=== PATIENT | female | born 1955 | race Caucasian/White ===

== ENCOUNTER 2025-04-25 06:53 | Day surgery (SDC) | payer MEDICARE, SELFPAY ==
[2025-04-21 09:22] VITALS: BMI 20.2
--- NOTE | 2025-04-23 09:32 | PTCARENOTE ---
Patients 04/21 PTT- 46.8= Abby @ office notified
--- NOTE | 2025-04-23 13:00 | PTCARENOTE ---
Patients 04/21 ECG abnormal- reviewed by Dr. Carrizales- no additional interventions required
[2025-04-25] VITALS (23 sets, daily range): BP systolic 102–158; BP diastolic 63–121; BMI 21.2
--- NOTE | 2025-04-25 08:45 | W.SUR.PREOP ---
Pre-Operative Surgical Note
-
I have examined this patient prior to the performance of the scheduled procedure.
The patient's condition is unchanged from the time of the current History and
Physical and the patient is able to undergo the scheduled procedure.
--- NOTE | 2025-04-25 09:34 | OR.RPT ---
Operative Report
Operative Report
Date of Operation: 04/25/2025
Pre Op Diagnosis:
1. Peripheral arterial occlusive disease
2. 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
3. Exertional right foot pain
Post Op Diagnosis:
1. Peripheral arterial occlusive disease
2. 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
3. Exertional right foot pain
Procedure:
1. Selective catheterization of third order lower extremity artery
2. Diagnostic aortobiiliac arteriogram
3. Diagnostic right lower extremity arteriogram
4. Ultrasound-guided percutaneous access to the left common femoral artery
Surgeon: Tanner Cisse III, MD
Toll Line Repairer: Chanelle Lee MD PGY2
Anesthesia: Sedation with local
Fluoroscopy:
5.5 min
18 mGy
6.93 gy.cm2
Complications: None
Estimated Blood Loss: Less than 10 cc
History and Indications for Procedure: 69-year-old female with symptomatic peripheral arterial occlusive disease and failed Marquez tibial bypass from an outside hospital. She was brought to the operating room today for diagnostic arteriogram of the
right lower extremity.
Procedure in Detail: Jayshree Rios was correctly identified and placed supine on the operating table. After adequate induction of anesthesia the bilateral groins were prepped and draped in the usual sterile fashion. A timeout was performed with
the nursing and anesthesia staff confirming the patient's identity as well as the nature and laterality of the procedure.
The left common femoral artery was identified under ultrasound guidance. The artery was patent. The superior and inferior aspects of the femoral head were identified with radiographic guidance and marked at the skin level. The proposed puncture site
was infiltrated with local anesthesia. Under ultrasound guidance we accessed the left common femoral artery with a micropuncture needle and upsized to a 5 Fr sheath over a [employer] wire. The wire and a [employer] hook flush catheter were advanced into
the distal abdominal aorta and a diagnostic aorto-biiliac arteriogram was performed:
AORTO-ILIAC ARTERIOGRAM:
Aorta: Patent with no stenosis identified
Right common iliac artery: Patent with no stenosis identified
Right external iliac artery: Patent with no stenosis identified
Left common iliac artery: Patent with no stenosis identified
Left external iliac artery: Patent with no stenosis identified
Under roadmap guidance using a Glidewire and the [employer] hook catheter we selected the right common iliac artery followed by the external iliac artery and then the common femoral artery. A catheter was tracked up and over the aortic bifurcation
and placed in the distal common femoral artery. A diagnostic right lower extremity arteriogram was then performed which demonstrated the following:
RIGHT LOWER EXTREMITY:
Common femoral artery: Patent with no stenosis identified
Profunda femoral artery: Patent with no stenosis identified
Superficial femoral artery: Patent with no significant stenosis identified. Mild luminal irregularity, perhaps mild stenosis at the previous site of the proximal anastomosis from the failed FEM tibial bypass.
Popliteal artery: Patent above the knee. Occluded behind the knee and below the knee. Obvious collaterals originating from the popliteal artery behind the knee that reconstitute the anterior tibial artery.
Anterior tibial artery: Reconstitutes at its origin. Patent to the ankle where it appears to occlude. Dorsalis pedis artery is occluded.
Tibioperoneal trunk: Occluded
Peroneal artery: Occluded proximal and mid segments. Appears to reconstitute distally at the ankle from distal anterior tibial artery branches. Posterior peroneal artery branch reconstitutes plantar branches in the foot.
Posterior tibial artery: Occluded. Faint reconstitution of a diminutive and heavily diseased posterior tibial artery in the calf. Surgical clips identified at the ankle consistent with prior bypass.
Satisfied with this diagnostic information we concluded the procedure. The catheter was pulled from the 5 Moldovan sheath. The 5 Moldovan sheath was secured in place with the plan to pull it in the recovery area.
The patient tolerated the procedure well and was taken to the recovery area in stable condition.
Attestation: I was present and responsible for the entire procedure.
Signed:
Tanner Cisse III, MD
Vascular Surgery
[facility]
== END 2025-04-25 14:30 | disposition home or self-care (01) ==
LOC: CATH 06:53
PROVIDERS: ATTENDING PHYSICIAN Surgery Vascular Surgery; OTHER PHYSICIAN Hospitalist; PRIMARYCARE PHYSICIAN Family Medicine
DX: I70.201 Unspecified atherosclerosis of native arteries of extremities, right leg (principal); T82.898A Other specified complication of vascular prosthetic devices, implants and grafts, initial encounter; Y83.2 Surgical operation with anastomosis, bypass or graft as the cause of abnormal reaction of the patient, or of later complication, without mention of misadventure at the time of the procedure; I65.21 Occlusion and stenosis of right carotid artery; M79.671 Pain in right foot; I25.2 Old myocardial infarction; Z79.01 Long term (current) use of anticoagulants; Z79.82 Long term (current) use of aspirin; Z79.899 Other long term (current) drug therapy
CPT/HCPCS: 75625; 36247; 75710; 93970; C1769; C1894; Q9967